=== PATIENT | female | born 1955 | race Caucasian/White ===

== ENCOUNTER 2017-04-17 10:40 | Emergency (ER) | payer OTHER ==
[~2017-04-17] VITALS: Ht 180.3 cm; Wt 65.8 kg
[2017-04-17] MEDS ORDERED: LISI10TA5 PO (10:58)
[2017-04-17] MEDS ORDERED: ASPI81TA31 PO (10:58)
[2017-04-17] MEDS ORDERED: CLON0.1T PO (10:58)
[2017-04-17] MEDS: NITROGLYCERIN OINT 1 GM PACKET TP ONE (11:17)
[2017-04-17 11:23] LABS: *BILIRUBIN,URIN NEGATIVE (NEGATIVE); *BLOOD, URINE 1+ (NEGATIVE); *CLARITY,URINE CLEAR (CLEAR); *COLOR,URINE YELLOW (YELLOW); *KETONES,URINE NEGATIVE (NEGATIVE); *PROTEIN,URINE NEGATIVE (NEGATIVE); *UROBILINOGEN,URINE 0.2 E.U./dl (NORMAL); LEUKOCYTE ESTERASE ,URINE TRACE (NEGATIVE); NITRITE, URINE NEGATIVE (NEGATIVE); UGLUCOSE NEGATIVE (NEGATIVE)
[2017-04-17 11:23] LABS: BASOPHILS # (AUTO) 0.1 K/uL (0.0-8.0); BASOPHILS % (AUTO) 0.8 % (0.0-2.0); EOSINOPHILS # (AUTO) 0.1 K/uL (0.0-0.7); EOSINOPHILS % (AUTO) 1.2 % (0.0-7.0); HEMATOCRIT 39.3 % (31.2-41.9); HEMOGLOBIN 13.6 g/dL (10.9-14.3); LYMPHOCYTES # (AUTO) 1.7 K/uL (20.0-40.0); LYMPHOCYTES % (AUTO) 17.9 % (20.5-51.5); MEAN CORPUSCULAR HEMOGLOBIN 31.3 uug (24.7-32.8); MEAN CORPUSCULAR HGB CONC 35 g/dL (32.3-35.6); MEAN CORPUSCULAR VOLUME 90.4 fL (75.5-95.3); MONOCYTES # (AUTO) 0.7 K/uL (2.0-10.0); MONOCYTES % (AUTO) 7.2 % (0.0-11.0); NEUTROPHILS % (AUTO) 72.9 % (38.5-71.5); PLATELET COUNT (AUTO) 242 K/uL (179-408); RED BLOOD CELL COUNT(AUTO) 4.34 MIL/uL (3.63-4.92); WHITE BLOOD COUNT (AUTO) 9.5 K/uL (3.8-11.8)
[2017-04-17] MEDS ORDERED: NITROGLYCERIN OINT 1 GM PACKET TP ONE (11:26)
[2017-04-17 11:33] LABS: BACTERIA,URINE NONE SEEN /HPF (NONE SEEN); SQUAMOUS EPITHELIAL CELL,UR FEW /HPF (NONE SEEN)
[2017-04-17 11:35] LABS: CREATININE 0.5 mg/dL (0.6-1.3); POTASSIUM 3.8 mmol/L (3.5-5.1)
[2017-04-17 11:41] LABS: BILIRUBIN,TOTAL 0.4 mg/dL (0.2-1.0); TOTAL PROTEIN, SERUM 7.3 g/dL (6.4-8.2)
--- NOTE | 2017-04-17 11:50 | NUR ---
Patient's spouse & family are asking is they can sign "AMA" then go to MD LAURA notified.
[2017-04-17 12:06] VITALS: BP 150/110
[2017-04-17] MEDS: METOPROLOL TARTRATE 50 MG TABLET PO ONE (12:06)
--- NOTE | 2017-04-17 12:16 | NUR ---
Patient ambulated 2x to bathroom with steady gait, calm & breathing easily.
[2017-04-17] MEDS: ONDANSETRON IV *ER 4 MG/2 ML VIAL IV ONE (13:07)
[2017-04-17] MEDS ORDERED: ONDANSETRON 4 MG/2 ML VIAL ONE (13:10)
[2017-04-17] MEDS: MORPHINE SULFATE 2 MG/1 ML DISP.SYRIN IV ONE (13:10)
[2017-04-17] MEDS ORDERED: MORPHINE SULFATE 2 MG/1 ML DISP.SYRIN ONE (13:11)
[2017-04-17] MEDS: KETOROLAC TROMETHAMINE 30 MG INJ IVP ONE (13:36)
--- NOTE | 2017-04-17 13:44 | NUR ---
Patient is still refusing pain medicines, notified
--- NOTE | 2017-04-17 14:28 | NUR ---
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
--- NOTE | 2017-04-17 14:38 | NUR ---
Patient is AOX4, still refusing any pains medicines at this time despite having 2-5/10 chest pains, MD notified.
== END 2017-04-17 14:42 | disposition short-term general hospital (02) ==
LOC: ER 10:40
DX: R07.9 Chest pain, unspecified (principal); R11.0 Nausea; R06.02 Shortness of breath; I10 Essential (primary) hypertension
CPT/HCPCS: 36415; 71010; 80053; 81001; 82550; 84484; 85025; 85610; 93005 ×2; 96374; 96375; 99285; A4663; J2270; J2405; 70030-TC